=== PATIENT | female | born 1950 | race Caucasian/White ===

== ENCOUNTER → 2016-03-04 09:44 | Outpatient (CLI) | payer MEDICARE | END | disposition home or self-care (01) | LOC: D.RAD 09:44 | DX: R10.9 Unspecified abdominal pain (principal); R19.7 Diarrhea, unspecified ==

== ENCOUNTER → 2016-03-11 09:04 | Outpatient (CLI) | payer MEDICARE | END | disposition home or self-care (01) | LOC: D.CT 08:30 | DX: R10.31 Right lower quadrant pain (principal); R19.7 Diarrhea, unspecified; K56.69 Other intestinal obstruction ==